=== PATIENT | male | born 1955 | race Caucasian/White ===

== ENCOUNTER → 2023-11-10 09:28 | Outpatient (REF) | payer MEDICARE, OTHER, SELFPAY ==
[2023-11-10 10:09] LABS: Hematocrit 44.2 % (39.0-52.0); Hemoglobin 15.2 g/dL (13.0-18.0); Mean Corp Hgb Conc. 34.4 g/dL (33.0-37.0); Mean Corpuscular Hgb 34.2 pg (27.0-31.0); Mean Corpuscular Volume 99.5 fL (80.0-94.0); Mean Platelet Volume 9.3 fL (7.4-10.4); Platelet Count 229 10^3/uL (130-400); Red Blood Cell Count 4.44 10^6/uL (4.70-6.10); Red Cell Dist. Width 12.2 % (11.5-14.5); White Blood Cell Count 5.5 10^3/uL (4.8-10.8)
== END ==
LOC: SDSPAT 09:28
PROVIDERS: ATTENDING PHYSICIAN Surgery; FAMILY PHYSICIAN Family Medicine
DX: Z01.818 Encounter for other preprocedural examination (principal)
CPT/HCPCS: 36415; 85027; 93005

== ENCOUNTER 2023-11-20 06:21 | Day surgery (SDC) | payer MEDICARE, OTHER, SELFPAY ==
[2023-11-10 09:45] VITALS: BMI 22.4
[2023-11-20] VITALS (9 sets, daily range): BP systolic 109–146; BP diastolic 59–82; BMI 22.4
--- NOTE | 2023-11-20 06:51 | HP.FOC2 ---
Focused History & Physical
Chief Complaint
HPI:
Chief Complaint: Bilateral inguinal hernias
HPI / Indication for Planned Procedure: 68-year-old male recently seen in outpatient surgical evaluation secondary to a few year history of swelling in the left inguinal region. Outpatient evaluation confirmed the presence of the anticipated left
inguinal hernia as well as an incidental right inguinal hernia. Patient presents for scheduled operative correction today
Relevant Past Medical History: Negative
Relevant Social History: ETOH (weekly)
Relevant Family History: Negative
Relevant Past Surgical History: Positive for (Right calcaneus fracture)
Review of Systems
Review of Pertinent Systems: All Systems Negative
Medication
See Medication form for detailed medications: Yes
Medication List (including Herbals & OTC):
No Meds [No Current Medications] 09/25/23
Medications Reviewed: Yes
Allergies and Reactions
Patient has Allergies: No
Noted Allergies and Reactions:
Allergy/AdvReac Type Severity Reaction Status Date / Time
No Known Allergies Allergy Unverified 11/20/23 06:43
Pertinent Physical Exam
All Other Systems: Negative
Head/Neck: Normal
Lungs: Normal
Heart: Normal
Abdomen: Other (Bilateral inguinal hernias left larger than right)
Extremities: Normal
Neurological: Normal
Diagnosis / Assessment
68-year-old male presenting for scheduled operative correction bilateral inguinal hernias
Plan / Procedure
Robotic assisted laparoscopic repair bilateral inguinal hernias with mesh
Anesthesia/Sedation to be done by Anesthesia Provider: Yes
[2023-11-20] MEDS: NORMOSOL-R 1000 IV (06:56)
--- NOTE | 2023-11-20 06:56 | W.SUR.PREOP ---
Pre-Operative Surgical Note
-
I have examined this patient prior to the performance of the scheduled procedure.
The patient's condition is unchanged from the time of the current History and
Physical and the patient is able to undergo the scheduled procedure.
[2023-11-20] MEDS: TYLENOL 1000 MG PO (06:57)
--- NOTE | 2023-11-20 09:01 | W.IMMPOSTOP ---
Surgical Immed Post Op Note
-
Primary Surgeon: Jenniffer
Assisting Surgeon: Melissa Rose PA-c
Pre-op Diagnosis: Bilateral inguinal hernias
Post-op Diagnosis: Bilateral inguinal hernias�direct
Procedure Performed: Laparoscopic TEP repair bilateral inguinal hernias with mesh; 3D max large mid weight
Anesthesia Type: GETA +0.25% Marcaine
Specimen / Cultures: None
Estimated Blood Loss: 6 mL
Complications: None immediate
Operative Findings: Bilateral direct inguinal hernias, left larger than right. No peritoneal entry with dissection. No significant lipomas of the inguinal canal. Indirect and femoral spaces normal. 3D max large mid weight mesh x 2 secured to
Ramón's with capture x 2
The assistance of Melissa Rose PA-C was required due to the complexity of the procedure. During the procedure Melissa Rose PA-C assisted with retraction, managing laparoscopic camera, and closure of the wound.
#[id number]
--- NOTE | 2023-11-20 10:56 | PTCARENOTE ---
Patient had crepitus in PACU in the chest. Per [employer] patient also had crepitus in the L below eye area and to L cheek. Per PACU nurse Anesthesia and Dr. Abad aware. Slight swelling to the L undereye +1. +1 nonpitting to the L cheek. Will
monitor patient.
== END 2023-11-20 10:55 | disposition home or self-care (01) ==
LOC: SDS 06:21
PROVIDERS: ATTENDING PHYSICIAN Surgery; FAMILY PHYSICIAN Family Medicine
DX: K40.20 Bilateral inguinal hernia, without obstruction or gangrene, not specified as recurrent (principal)
CPT/HCPCS: 49650; C1781